=== PATIENT | female | born 1935 | race Caucasian/White ===

== ENCOUNTER → 2020-10-05 16:50 | Outpatient (BNVA) | payer MEDICARE, BC, SELFPAY | PROVIDERS: PCP Nurse Practitioner Family; Referring Provider Nurse Practitioner Family; Visit Provider Nurse Practitioner Family | DX: N39.0 Urinary tract infection, site not specified (principal) | CPT/HCPCS: 81003; 87077; 87086; 87184 ==

== ENCOUNTER → 2020-10-19 11:00 | Outpatient (BNVA) | payer MEDICARE, BC, SELFPAY | PROVIDERS: PCP Nurse Practitioner Family; Referring Provider Nurse Practitioner Family; Visit Provider Nurse Practitioner Family | DX: N39.0 Urinary tract infection, site not specified (principal) | CPT/HCPCS: 87086 ==

== ENCOUNTER → 2020-11-10 13:34 | Outpatient (BNVA) | payer MEDICARE, OTHER, SELFPAY | PROVIDERS: PCP Nurse Practitioner Family; Visit Provider Urology | DX: N39.0 Urinary tract infection, site not specified (principal) | CPT/HCPCS: 81003; 87086 ==

== ENCOUNTER 2020-12-24 09:19 | Outpatient (CLI) | payer MEDICARE, OTHER, SELFPAY ==
--- NOTE | 2020-12-24 09:30 | US_ITS ---
WS: [id number] ULTRASOUND RENAL TECHNIQUE: Ultrasound examination of both kidneys. CLINICAL INFORMATION: RECURRENT UTI COMPARISON: None. FINDINGS: RIGHT: Right kidney is normal in size and appearance. Echogenicity: Normal. Cortical thickness: 1.1 cm; Normal. Hydronephrosis: None. Perinephric fluid: None. Right kidney measures: 10.1 cm x 4.8 cm x 5.0 cm. LEFT: Left kidney is normal in size and appearance. Echogenicity: Normal. Cortical thickness: 1.1 cm; Normal. Hydronephrosis: None. Perinephric fluid: None. Left kidney measures: 8.3 cm x 4.5 cm x 4.8 cm. Normal visualized aorta. US/US renal BI* [id number] IMPRESSION: Normal renal ultrasound
--- NOTE | 2020-12-24 10:15 | XR_ITS ---
WS: [id number] KUB, AP view, 12/24/2020 Clinical Data: RECURRENT UTI Comparison: None. Findings: No abnormal intraabdominal masses or calcifications are seen. No renal or ureteral calcifications are noted. There is no dilatated small bowel or evidence of obstruction. The patient has had a unilateral right fusion from L3 through L5 with pedicle screws and interconnect ing michael. There is also a bony fusion at this level on the right. Laminectomies at L3 and L4 are noted . 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 There is a large amount of feca l material in the descending colon and rectum. XR/XR KUB [id number] Impression: Fecal material in the descending colon and rectum.
== END 2020-12-24 09:20 | disposition home or self-care (01) ==
LOC: US 09:20
PROVIDERS: PCP Nurse Practitioner Family; Visit Provider Urology
DX: N39.0 Urinary tract infection, site not specified (principal)
CPT/HCPCS: 74018; 76770; 81003

== ENCOUNTER → 2021-02-18 13:28 | Outpatient (BNVA) | payer MEDICARE, OTHER, SELFPAY | PROVIDERS: PCP Nurse Practitioner Family; Visit Provider Urology | DX: N39.0 Urinary tract infection, site not specified (principal) | CPT/HCPCS: 81003 ==

== ENCOUNTER → 2021-03-02 10:33 | Outpatient (BNVA) | payer MEDICARE, OTHER, SELFPAY | PROVIDERS: PCP Nurse Practitioner Family; Visit Provider Urology | DX: N39.0 Urinary tract infection, site not specified (principal) | CPT/HCPCS: 87077; 87086; 87184 ==

== ENCOUNTER → 2021-05-06 10:45 | Outpatient (BNVA) | payer MEDICARE, OTHER, SELFPAY | PROVIDERS: PCP Nurse Practitioner Family; Referring Provider Dermatology; Visit Provider Podiatrist Foot & Ankle Surgery | DX: M25.572 Pain in left ankle and joints of left foot (principal); M25.571 Pain in right ankle and joints of right foot; M21.612 Bunion of left foot; M21.611 Bunion of right foot; M19.072 Primary osteoarthritis, left ankle and foot; M19.071 Primary osteoarthritis, right ankle and foot; M20.42 Other hammer toe(s) (acquired), left foot; M20.41 Other hammer toe(s) (acquired), right foot | CPT/HCPCS: 73630; 81003 ==

== ENCOUNTER → 2021-08-12 09:06 | Outpatient (BNVA) | payer MEDICARE, OTHER, SELFPAY | PROVIDERS: PCP Nurse Practitioner Family; Visit Provider Nurse Practitioner Family | DX: N39.0 Urinary tract infection, site not specified (principal) | CPT/HCPCS: 81003 ==

== ENCOUNTER → 2021-09-20 15:59 | Outpatient (BNVA) | payer MEDICARE, OTHER, SELFPAY | PROVIDERS: PCP Nurse Practitioner Family; Visit Provider Urology | DX: N39.0 Urinary tract infection, site not specified (principal) | CPT/HCPCS: 87086 ==

== ENCOUNTER → 2021-12-20 13:57 | Outpatient (BNVA) | payer MEDICARE, OTHER, SELFPAY | PROVIDERS: PCP Nurse Practitioner Family; Visit Provider Specialist | DX: G30.9 Alzheimer's disease, unspecified (principal); F02.80 Dementia in other diseases classified elsewhere, unspecified severity, without behavioral disturbance, psychotic disturbance, mood disturbance, and anxiety | CPT/HCPCS: 96116; 99204; 99205 ==

== ENCOUNTER 2021-12-20 15:59 | Outpatient (CLI) | payer MEDICARE, OTHER, SELFPAY ==
[2021-12-20 17:29] LABS: Vitamin B12 386 pg/mL (232-1245)
== END 2021-12-20 16:00 | disposition home or self-care (01) ==
LOC: LAB 16:02
PROVIDERS: PCP Nurse Practitioner Family; Visit Provider Specialist
DX: R20.0 Anesthesia of skin (principal); R20.2 Paresthesia of skin
CPT/HCPCS: 82607

== ENCOUNTER → 2022-02-10 10:35 | Outpatient (BNVA) | payer MEDICARE, OTHER, SELFPAY | PROVIDERS: PCP Nurse Practitioner Family; Visit Provider Urology | DX: N39.0 Urinary tract infection, site not specified (principal) | CPT/HCPCS: 81003; 87077; 87086; 87184 ==

== ENCOUNTER → 2022-05-04 10:59 | Outpatient (BNVA) | payer MEDICARE, OTHER, SELFPAY | PROVIDERS: PCP Nurse Practitioner Family; Visit Provider Nurse Practitioner Family | DX: N39.0 Urinary tract infection, site not specified (principal) | CPT/HCPCS: 81003; 87077; 87086; 87186; 99213 ==

== ENCOUNTER → 2022-05-23 08:35 | Outpatient (BNVA) | payer MEDICARE, OTHER, SELFPAY | PROVIDERS: PCP Nurse Practitioner Family; Visit Provider Nurse Practitioner Family | DX: N39.0 Urinary tract infection, site not specified (principal) | CPT/HCPCS: 81003; 99213 ==

== ENCOUNTER → 2022-06-14 11:00 | Outpatient (BNVA) | payer MEDICARE, OTHER, SELFPAY | PROVIDERS: PCP Nurse Practitioner Family; Visit Provider Specialist | DX: G30.9 Alzheimer's disease, unspecified (principal); F02.80 Dementia in other diseases classified elsewhere, unspecified severity, without behavioral disturbance, psychotic disturbance, mood disturbance, and anxiety | CPT/HCPCS: 99213; 99214 ==

== ENCOUNTER 2022-07-11 20:35 | Emergency (ER) | payer MEDICARE, OTHER, SELFPAY ==
[2022-07-11 21:01] VITALS: BP 185/92; PULSE 73; RESP 18; TEMP 36.6; O2SAT 97; BMI 25.8
--- NOTE | 2022-07-11 21:12 | ED_ITS ---
HPI - General Adult General: Chief complaint: Skin/Abscess/Foreign Body Stated complaint: BLISTERS Time Seen by Provider: 07/11/22 21:02 History of Present Illness: Patient is an 87-year-old female with history of recurrent UTI who presents the emergency room for concerns of rash on the right thigh and right lower back. Patient tells me that she first noticed this lesion after waking up this morning. Patient received reports burning-like sensation. Patient does not know her when her/single shot cyst. Patient denies any confusion. Patient would also like to be checked to see whether she has a UTI. Patient denies any IV drug use, HIV, diabetes or history of transplant. Onset:5am Duration:ongoing Location:home Severity:moderate Associated symptoms: Deny chest pain, dyspnea, nausea, palpitations or vomiting Review of Systems Const: Denies: fever(s) or chills Eyes: Denies: change in vision ENMT: Denies: mouth pain Card: Denies: chest pain or palpitations Resp: Denies: dyspnea or non-productive cough GI: Denies: abdominal pain, nausea, vomiting or diarrhea : Denies: dysuria Musc: Denies: extremity pain Skin/Breast: Reports: new lesions (+R thigh vesicles and +R lower back vesicle) Neuro: Denies: weakness in extremities Psych: Reports: other (Normal mood) Himanshu/Lymph: Denies: easy bruising PFSH ED PFSH: Medical History Hx of breast cancer Recurrent UTI Surgical History History of back surgery Hx of hysterectomy Hx of lumpectomy Family History Mother , at age 86 Parkinsons Father , at age 92 Pancreatic tumor Social History Smoking and tobacco status: never smoked Alcohol intake: never Adopted: No Caregiver/support person: Yes Lives independently: No Housing: Assisted Living Facility Marital status: / Current occupational status: retired History of recent travel: No Physical Exam Const: COMMON NORMALS: alert HENMT: COMMON NORMALS: atraumatic HEAD & SCALP: atraumatic MOUTH: moist mucous membranes not abnormal Eye: COMMON NORMALS: EOMs intact bilaterally and conjunctivae normal CONJUNCTIVA: Yes conjunctivae normal Neck/C-Spine: COMMON NORMALS: full ROM and supple Resp: COMMON NORMALS: normal respiratory effort and clear to auscultation bilaterally AUSCULTATION: clear to auscultation bilaterally Cardio: COMMON NORMALS: regular rate RATE: regular rate GI: COMMON NORMALS: Soft to palpation and non-tender PALPATION: Yes Soft to palpation Extremity: COMMON NORMALS: full ROM Neuro: SENSORIUM/ORIENTATION: Yes alert MOTOR EXAM: No Abnormal motor strength present and Other motor observations present (no focal motor deficits) Psych: COMMON NORMALS: speech normal SPEECH: Yes normal speech MOOD & AFFECT: Yes euthymic mood Skin: NARRATIVE SKIN EXAM: + Multiple rights thigh vesicles, right lower back vesicles Course Vital Signs: Vital signs: Vital Signs Temperature 98.2 F 07/12/22 00:09 Pulse Rate 72 07/12/22 00:09 Respiratory Rate 18 07/12/22 00:09 Blood Pressure 169/91 07/12/22 00:09 Pulse Oximetry 98 07/12/22 00:09 Oxygen Delivery Me thod 07/11/22 21:01 MDM - General Adult Medical Decision Making Patient is an 87-year-old female with history of recurrent UTI who presents the emergency room for concerns of rash on the right thigh and right lower back since 5 AM this morning. On exam, patient has findings of vesicle consistent with shingles into dermatomes. Given the fact the patient has no altered mental status, shingles limited to dermatomes as well as no disseminated findings and not currently immunocompromise, decision was made for outpatient treatment. Patient received lidocaine patch for pain on the shingle sites. Patient will be started on valacyclovir. Patient does not have any kidney renal kidney issues. I have given patient return precaution for any signs of confusion, altered mental status, or more than 3 areas of shingle as these are signs of disseminated shingles. Rx valcyclovir for shingles Disposition: Discharge. Patient counseled regarding diagnostic impression, treatment plan. Patient given ED strict return precautions to return for continuation, worsening, or development of new symptoms. Instructed to f/u w/ PCP regarding symptoms today. Patient verbalized understanding. Lab Data : 07/11/22 21:40 07/11/22 21:40 Laboratory Results WBC 6.1 10^3/uL (4.0-10.0) 07/11/22 21:40 RBC 4.32 10^6/uL (4.1-5.3) 07/11/22 21:40 Hgb 13.0 g/dL (11.5-15.3) 07/11/22 21:40 Hct 38.4 % (37.0-47.0) 07/11/22 21:40 MCV 88.9 fl (81-99) 07/11/22 21:40 MCH 30.1 pg (28.0-34.0) 07/11/22 21:40 MCHC 33.9 g/dL (30.0-36.0) 07/11/22 21:40 RDW 12.7 % (12.1-15.1) 07/11/22 21:40 Plt Count 198 10^3/cmm (130-400) 07/11/22 21:40 MPV 10.2 fL (7.4-10.4) 07/11/22 21:40 Neut % (Auto) 58.3 % 07/11/22 21:40 Lymph % (Auto) 28.2 % 07/11/22 21:40 [place] % (Auto) 11.1 % 07/11/22 21:40 Eos % (Auto) 2.0 % 07/11/22 21:40 Baso % (Auto) 0.2 % 07/11/22 21:40 Neut # (Auto) 3.57 10^3/uL (1.8-7.7) 07/11/22 21:40 Lymph # (Auto) 1.7 10^3/uL (0.8-4.8) 07/11/22 21:40 [place] # (Auto) 0.7 10^3/uL (0.2-0.9) 07/11/22 21:40 Eos # (Auto) 0.1 10^3/uL (0.0-0.8) 07/11/22 21:40 Baso # (Auto) 0.0 10^3/uL (0.0-0.1) 07/11/22 21:40 Nucleated RBC % (auto) 0 % 07/11/22 21:40 Nucleated RBCs # 0.0 /100WBC 07/11/22 21:40 Sodium 134 mmol/L (136-145) L 07/11/22 21:40 Potassium 3.5 mmol/L (3.5-5.1) 07/11/22 21:40 Chloride 97 mmol/L (98-107) L 07/11/22 21:40 Carbon Dioxide 28 mmol/L (22-29) 07/11/22 21:40 Anion Gap 12.5 (5-19) 07/11/22 21:40 BUN 18 mg/dL (8-23) 07/11/22 21:40 Creatinine 0.7 mg/dL (0.5-0.9) 07/11/22 21:40 GFR Calculation Not Reportable 07/11/22 21:40 Glucose 101 mg/dL (65-115) 07/11/22 21:40 Calculated Osmolality 280 mOsm/kg (285-295) L 07/11/22 21:40 Calcium 9.4 mg/dL (8.5-10.5) 07/11/22 21:40 Urine Color Yellow (Yellow) 07/11/22 22:18 Urine Appearance Clear (CLEAR) 07/11/22 22:18 Urine pH 6 (5-7) 07/11/22 22:18 Ur Specific [place] 1.010 (1.005-1.030) 07/11/22 22:18 Urine Protein Neg (Negative) 07/11/22 22:18 Urine Glucose (UA) Norm (Normal) 07/11/22 22:18 Urine Ketones Negative (Negative) 07/11/22 22:18 Urine Blood Neg (Negative) 07/11/22 22:18 Urine Nitrate Negative (Negative) 07/11/22 22:18 Urine Bilirubin Neg (Negative) 07/11/22 22:18 Urine Urobilinogen Norm mg/dL (Negative) 07/11/22 22:18 Ur Leukocyte Esterase Negative (Negative) 07/11/22 22:18 Discharge Plan Discharge Patient Disposition: Home Clinical Impression: Shingles Condition: Stable Prescriptions: No Action Probiotic 3 billion cell capsule 3,000 mmu cells PO DAILY Rx Instructions: administer with a meal diltiazem HCl 120 mg capsule,extended release 24hr 120 mg PO DAILY calcium carbonate-vitamin D3 [Calcium 600 with Vitamin D3] 600 mg(1,500mg) - 500 unit capsule PO BID ascorbic acid (vitamin C) 500 mg capsule PO BID cranberry 500 mg capsule 500 mg PO DAILY Rx Instructions: administer with meals psyllium husk [Daily Fiber] 0.4 gram capsule 0.4 g PO DAILY loratadine 10 mg capsule 10 mg PO DAILY polyethylene glycol 3350 [Miralax] 17 gram/dose powder 17 g PO DAILY galantamine 8 mg tablet 8 mg PO BID Qty: 180 3RF Rx Instructions: administer with AM and PM meals omeprazole 40 mg capsule,delayed release(DR/EC) 40 mg PO DAILY PRN losartan 50 mg tablet 50 mg PO DAILY anastrozole 1 mg tablet 1 mg PO DAILY Restasis 0.05 % dropperette 1 drp ophthalmic (eye) Q12H ICaps [id number] tablet extended release 1 tab PO DAILY sertraline 50 mg tablet 50 mg PO BID cefuroxime axetil 500 mg tablet 500 mg PO .COMPLEX Qty: 60 4RF Rx Instructions: 500 mg PO twice a day for 1 month then decrease to once a day; Discharge Orders: Discharge ED (Routine); Ordered 07/11/22 Ordered By: Luz Marina Shannon Referrals: Sara Escamilla FNP [Primary Care Provider] - Discharge Diet: Advance as tolerated Discharge Activity: Increase activity as tolerated Patient Instructions: Shingles (ED), Pain Management Activity Restrictions/Additional Instructions: Come back if you have any new or concerning issues. Take your antiviral as instructed. Come back to the emergency room if any change in mental status, and worsening shingle and more than 2 spots, or any new or concerning complaints. Coding Level of Care Code ED Plate Washer for Tamela Oliva Exam Comprehensive
[2022-07-11 21:54] LABS: Basophils % 0.2 %; Eosinophils # 0.1 10^3/uL (0.0-0.8); Hematocrit 38.4 % (37.0-47.0); Lymphocytes # 1.7 10^3/uL (0.8-4.8); Lymphocytes % 28.2 %; Mean Corpuscular HGB Conc 33.9 g/dL (30.0-36.0); Mean Corpuscular Hemoglobin 30.1 pg (28.0-34.0); Mean Corpuscular Volume 88.9 fl (81-99); Mean Platelet Volume 10.2 fL (7.4-10.4); Monocytes # 0.7 10^3/uL (0.2-0.9); Monocytes % 11.1 %; Neutrophils # 3.57 10^3/uL (1.8-7.7); Neutrophils % 58.3 %; Nucleated Red Blood Cells % 0 %; Platelet Count 198 10^3/cmm (130-400); Red Blood Count 4.32 10^6/uL (4.1-5.3); Red Cell Distribution Width 12.7 % (12.1-15.1); White Blood Count 6.1 10^3/uL (4.0-10.0)
[2022-07-11 22:16] LABS: Anion Gap 12.5 (5-19); Blood Urea Nitrogen 18 mg/dL (8-23); Calcium 9.4 mg/dL (8.5-10.5); Carbon Dioxide 28 mmol/L (22-29); Chloride 97 mmol/L (98-107); Glucose 101 mg/dL (65-115); Osmolality Calculated 280 mOsm/kg (285-295); Potassium 3.5 mmol/L (3.5-5.1); Sodium 134 mmol/L (136-145)
[2022-07-11 22:57] LABS: Add Urine Microscopic? NO; Charge for UA Resulting for Rev
[2022-07-11 22:58] LABS: Bilirubin Urine Neg (Negative); Blood Urine Neg (Negative); Glucose Urine UA Norm (Normal); Ketones Urine Negative (Negative); Leukocyte Esterase Urine Negative (Negative); Nitrate Urine Negative (Negative); Protein Urine Neg (Negative); Urine Appearance Clear (CLEAR); Urine Color Yellow (Yellow); Urobilinogen Urine Norm (Negative); pH Urine 6 (5-7)
[2022-07-12] MEDS: lidocaine 5% Patch 1 PATCH TOPICAL (00:08)
[2022-07-12 00:09] VITALS: BP 169/91; PULSE 72; RESP 18; TEMP 36.8; O2SAT 98
[2022-07-12] MEDS: valACYclovir 1,000 mg Tablet 1000 MG PO (00:09)
== END 2022-07-12 00:14 | disposition home or self-care (01) ==
PROVIDERS: Emergency Provider Emergency Medicine; PCP Nurse Practitioner Family
DX: B02.9 Zoster without complications (principal); Z85.3 Personal history of malignant neoplasm of breast
CPT/HCPCS: 80048; 81003; 85025; 99283

== ENCOUNTER → 2022-08-15 14:31 | Outpatient (BNVA) | payer MEDICARE, OTHER, SELFPAY | PROVIDERS: PCP Nurse Practitioner Family; Visit Provider Urology | DX: N39.0 Urinary tract infection, site not specified (principal) | CPT/HCPCS: 81003; 99213 ==

== ENCOUNTER → 2022-09-07 12:28 | Outpatient (BNVA) | payer MEDICARE, OTHER, SELFPAY | PROVIDERS: PCP Nurse Practitioner Family; Visit Provider Emergency Medicine | DX: J02.8 Acute pharyngitis due to other specified organisms (principal); B97.89 Other viral agents as the cause of diseases classified elsewhere; J06.9 Acute upper respiratory infection, unspecified; J00 Acute nasopharyngitis [common cold] | CPT/HCPCS: 87400; 87880 ==